=== PATIENT | female | born 1965 | race Two or more races ===

== ENCOUNTER 2022-12-15 10:31 | Outpatient (CLI) | payer OTHER | END 2022-12-15 10:40 | disposition home or self-care (01) | LOC: LAB 10:31 | PROVIDERS: ATTEND Internal Medicine Cardiovascular Disease | DX: I10 Essential (primary) hypertension (principal); E11.9 Type 2 diabetes mellitus without complications; E87.8 Other disorders of electrolyte and fluid balance, not elsewhere classified; E78.9 Disorder of lipoprotein metabolism, unspecified; D24.9 Benign neoplasm of unspecified breast ==